=== PATIENT | male | born 1995 | race Caucasian/White ===

== ENCOUNTER 2016-11-01 18:15 | Emergency (ER) | payer OTHER ==
[~2016-11-01] VITALS: Ht 190.5 cm; Wt 104.3 kg
[2016-11-01 18:30] VITALS: BP 145/68
--- NOTE | 2016-11-01 19:48 | NUR ---
TO ER OF1
--- NOTE | 2016-11-01 19:55 | NUR ---
Patient being evaluated by DR. MCFARLAND at bedside.
--- NOTE | 2016-11-01 20:03 | NUR ---
20Y/M PT. BIB TO ED WITH C/O WOUND DEHESCENT X 1 DAYS. PT. STATES WOUND DEHESCENT, NO ACTIVE BLEEDING. AAO X4, AMBULATORY WITH STEADY GAIT. SKIN WARM AND DRY, LT. WOUND DEHESCENT, NO ACTIVE BLEEDING. VSS, NO S/SX OF DISTRESS. ER MD MADE AWARE OF PT. STATUS.
--- NOTE | 2016-11-01 20:20 | NUR ---
Patient discharged with v/s stable. Written and verbal after care instructions given and explained. Patient alert, oriented and verbalized understanding of instructions. Ambulatory with steady gait. All questions addressed prior to discharge. ID band removed. Patient advised to follow up with PMD. Rx of KEFLEX 500 MG given. Patient educated on indication of medication including possible reaction and side effects. Opportunity to ask questions provided and answered.
[2016-11-01 20:34] VITALS: BP 145/68
== END 2016-11-01 20:20 | disposition home or self-care (01) ==
LOC: MED 18:15
DX: S41.112D Laceration without foreign body of left upper arm, subsequent encounter (principal); X58.XXXD Exposure to other specified factors, subsequent encounter
CPT/HCPCS: 99283